=== PATIENT | male | born 1985 ===

== ENCOUNTER 2020-10-25 05:51 | Day surgery (SDC) | payer OTHER ==
[2020-10-25] MEDS ORDERED: NEURONTIN600 M1 PO (09:35)
[2020-10-25] MEDS ORDERED: COLACE100 MG PO (09:35)
[2020-10-25] MEDS ORDERED: PERCOCET 5-3251 EACH PO (09:35)
== END 2020-10-25 10:55 | disposition home or self-care (01) ==
LOC: CIR.AMB 05:51
PROVIDERS: ATTEND Surgery
DX: K40.90 Unilateral inguinal hernia, without obstruction or gangrene, not specified as recurrent (principal); Z20.822 Contact with and (suspected) exposure to COVID-19

== ENCOUNTER 2022-02-25 06:00 | Day surgery (SDC) | payer OTHER ==
[~2022-02-25 06:00] MED LIST: COLACE100 MG PO; NEURONTIN600 M1 PO; PERCOCET 5-3251 EACH PO
[2022-02-25] MEDS ORDERED: ULTRAM50 MG PO (08:57)
== END 2022-02-25 15:45 | disposition home or self-care (01) ==
LOC: CIR.AMB 06:00
PROVIDERS: ATTEND Surgery
DX: I86.1 Scrotal varices (principal); Z20.822 Contact with and (suspected) exposure to COVID-19; Z86.16 Personal history of COVID-19; F10.21 Alcohol dependence, in remission; F19.11 Other psychoactive substance abuse, in remission